=== PATIENT | female | born 1960 | race Caucasian/White ===

== ENCOUNTER → 2018-08-21 | Outpatient (CLI) | payer BC | LOC: M.RAD 13:20 | DX: Z12.31 Encounter for screening mammogram for malignant neoplasm of breast (principal) ==

== ENCOUNTER → 2019-04-29 | Outpatient (CLI) | payer OTHER | LOC: M.CT 13:58 | DX: Z13.6 Encounter for screening for cardiovascular disorders (principal) ==

== ENCOUNTER → 2019-08-21 | Outpatient (CLI) | payer BC | LOC: M.RAD 13:52 | DX: Z12.31 Encounter for screening mammogram for malignant neoplasm of breast (principal) ==

== ENCOUNTER → 2020-04-17 | Day surgery (SDC) | payer BC ==
[~2020-04-17] MED LIST: BONIVA150 MG PO; BUSPIRONE HCL15 MG PO; NORCO 5-325 TA1 EAC1 PO; ROPINIROLE HCL2 MG PO; ROPINIROLE HCL8 MG PO; SERTRALINE HCL50 MG PO; SINGULAIR 10 MG10 M1 PO; SYNTHROID100 MC1 PO; ZYRTEC10 MG PO
--- NOTE | ~2020-04-17 | OP ---
[facility] [address] [place] [address] OPERATIVE REPORT Name: LYNETTEMARY Vini Room: [facility]#: [id number] Admission: 04/17/20 Attend Phys: Ulises Stewart Discharge: Date of : 58 Report #: [id number] THIS REPORT FOR: //name// cc: Rodriguez Patrick Vincent R. DO ~ THIS REPORT FOR: //name// CC: Ulises Patrick DATE OF SERVICE: 04/17/2020 PREOPERATIVE DIAGNOSIS: Incarcerated umbilical hernia. POSTOPERATIVE DIAGNOSIS: Incarcerated umbilical hernia. OPERATION: Laparoscopic repair of incarcerated umbilical hernia with mesh. SURGEON: Ulises Stewart MD ANESTHESIA: General. ESTIMATED BLOOD LOSS: Minimal. SPECIMEN: None. DESCRIPTION OF PROCEDURE: After informed consent was obtained, the patient was brought to the operating room and placed supine. SCDs were placed and working, preoperative antibiotics were administered, general anesthesia was induced. The abdomen was prepped and draped in the usual sterile fashion. A 5 mm incision was made in the left upper quadrant. A 5 mm trocar was placed under direct vision. Pneumoperitoneum was established. A left-sided 8 mm trocar was placed under direct vision. She had incarcerated preperitoneal fat in a very small hernia defect. The defect was less than 1 cm. This was all carefully reduced. I then inserted a Bard Ventralight mesh. This was cut to approximately an 8 cm [place]. It was then tacked to the abdominal wall to cover the defect widely. This was Sorbafix tacker. The ports were then removed under direct vision. The skin was closed with 4-0 Monocryl. Incisions were sealed with Dermabond. COMPLICATIONS: [place] [address] OPERATIVE REPORT Name: MARY OJEDA Room: [facility]#: [id number] Admission: 04/17/20 Attend Phys: Ulises Stewart Discharge: Date of : 58 Report #: [id number] DISPOSITION: The patient was taken to recovery in satisfactory condition. By: [id number] Stewart MD /crow
[2020-04-17 06:55] LABS: HEMATOCRIT 40.6 % (37.0-47.0); HEMOGLOBIN 13.9 gm/dL (12.0-15.0); MCH 29.6 pg (26.0-34.0); MCHC 34.3 g/dL (28.0-37.0); MCV 86.4 fL (80.0-100.0); RBC 4.69 mil/uL (4.20-5.00); RDW-CV 14.3 % (10.5-14.5); WBC 6.2 thou/uL (4.0-11.0)
[2020-04-17 07:03] LABS: CALCIUM 8.3 mg/dL (8.5-10.1); CREATININE 0.8 mg/dL (0.6-1.3); POTASSIUM 3.6 mmol/L (3.5-5.1)
--- NOTE | 2020-04-17 10:12 | EKG ---
[place] [address] ELECTROCARDIOGRAM REPORT Name: MARY OJEDA Room: [facility]#: [id number] Admission: 04/17/20 Attend Phys: Ulises Alexander Discharge: Date of : 58 Date of Service: 04/17/20711 Report #: [id number] THIS REPORT FOR: //name// [facility] Test Date: 2020-04-17 Test Time: 07:12:22 Pat Name: MARY OJEDA Department: Room: Gender: Comp Field Case Manager: Bette DELA CRUZ RN : 1960 Requested By: Ulises Stewart Order Number: [id number] Yaneth MD: Jeff Mora Measurements Intervals [place] Rate: 56 P: 24 TN: 167 QRS: -18 QRSD: 93 T: 29 QT: 464 QTc: 448 Interpretive Statements Sinus bradycardia Borderline left axis deviation Borderline low voltage, extremity leads No previous ECG available for comparison Electronically Signed On 04-17-2020 10:12:05 CDT by Jeff Mora [email or web address] <ELECTRONICALLY SIGNED> By: Jeff Mora MD, [facility] 04/17/20 1012 1 1 Jeff Mora MD, [facility] /EPI
== END | disposition home or self-care (01) ==
LOC: M.SUR
PROVIDERS: ATTEND Surgery
DX: K42.0 Umbilical hernia with obstruction, without gangrene (principal); Z11.59 Encounter for screening for other viral diseases

== ENCOUNTER → 2020-08-12 | Outpatient (CLI) | payer BC | LOC: M.RAD 11:22 | PROVIDERS: ATTEND Family Medicine | DX: Z12.31 Encounter for screening mammogram for malignant neoplasm of breast (principal) ==

== ENCOUNTER → 2021-08-11 | Outpatient (CLI) | payer BC | LOC: M.RAD 13:43 | PROVIDERS: ATTEND Family Medicine | DX: Z12.31 Encounter for screening mammogram for malignant neoplasm of breast (principal) ==